=== PATIENT | male | born 1985 | race Caucasian/White ===

== ENCOUNTER 2016-12-09 18:43 | Emergency (ER) | payer SELFPAY ==
[~2016-12-09] VITALS: Ht 165.1 cm; Wt 82.0 kg
[2016-12-09 19:04] VITALS: BP 123/67
[2016-12-09] MEDS ORDERED: BACITRACIN ZINC OINT UDPKT TOP ONE (22:30)
[2016-12-09] MEDS ORDERED: LIDOCAINE HCL 1% 20ML VIAL (Pyxis) INJ MC ONE (22:30)
== END 2016-12-10 00:18 | disposition home or self-care (01) ==
LOC: ER 22:07
DX: S61.211A Laceration without foreign body of left index finger without damage to nail, initial encounter (principal); W25.XXXA Contact with sharp glass, initial encounter; Y93.89 Activity, other specified; Y92.89 Other specified places as the place of occurrence of the external cause; Y99.8 Other external cause status
CPT/HCPCS: 12002; 99283; J3490; Z7610